=== PATIENT | female | born 1965 | race Caucasian/White ===

== ENCOUNTER 2017-08-04 12:13 | Emergency (ER) | payer OTHER ==
[~2017-08-04] VITALS: Ht 165.1 cm; Wt 69.9 kg
[~2017-08-04 12:13] MED LIST: HYDROCHLOROTHIA25 M1 PO; LOVASTATIN20 M1 PO; MONTELUKAST SOD10 M1 PO; VERAPAMIL ER240 MG PO; ZOFRAN4 M2 SL; ZONISAMIDE100 M1 PO
--- NOTE | 2017-08-04 13:43 | CT SCAN REPORT ---
EXAMINATION: CT HEAD WITHOUT CONTRAST CLINICAL INFORMATION: Headache. Blurry vision. COMPARISON: No relevant prior imaging. TECHNIQUE: Contiguous axial imaging was performed from the skull base to vertex without intravenous administration of contrast. DLP: 616.61 mGy-cm FINDINGS: There is no acute intracranial hemorrhage or abnormal extra-axial collection. No intracranial mass effect or midline shift. Lateral and third ventricles are normal. No hydrocephalus. Vasquez-white matter differentiation is grossly preserved and there is no evidence of acute territorial infarct. The calvarium and skull base are intact. Mastoid air cells and middle ear cavities are well-aerated. Visualized paranasal sinuses are well aerated. IMPRESSION: Normal CT scan of the head.
--- NOTE | 2017-08-04 14:57 | ED GENERAL PEDIATRIC ---
History of Present Illness General Chief Complaint: General Adult Stated Complaint: BLURRY VISION, JOINT PAIN Source: patient Exam Limitations: no limitations Vital Signs & Intake/Output Vital Signs & Intake/Output Vital Signs Date Time Temp Pulse Resp B/P B/P Pulse O2 O2 Flow FiO2 Mean Ox Delivery Rate 08/04 1508 98.4 78 18 138/79 95 Room Air Room Air 08/04 1235 98.1 77 18 132/91 99 Room Air Allergies Coded Allergies: Sulfa (Sulfonamide Antibiotics) (Intermediate, SWELLING/HIVES 07/03/15) Reconcile Medications Aspirin (Aspirin*) 81 MG TAB.CHEW 1 TAB PO DAILY HEART HEALTH (Reported) Calcium (Elemental-Fr Calcarb) (Calcium) 600 MG CALCIUM (1,500 MG) TABLET 1 TAB PO DAILY SUPPLEMENT (Reported) Hydrochlorothiazide 25 MG TABLET 1 TAB PO EOD WATER PILL (Reported) Lovastatin 20 MG TABLET 1 TAB PO DAILY CHOLESTEROL (Reported) Metoprolol Succ XL (Toprol Xl) 50 MG TAB 1 TAB PO DAILY HEART (Reported) Montelukast Sodium (Singulair) 10 MG TABLET 1 TAB PO DAILY ALLERGIES ( Reported) Zonisamide 100 MG CAPSULE 2 CAP PO DAILY UNKNOWN (Reported) Triage Note: 51F WITH HEADACHE SINCE YESTERDAY, AND ONE HOUR OF VISION BLURRING. HX OF MIGRAINES BUT SAYS THIS DOES NOT FEEL LIKE ONE. SEVERE JOINT ACHES BEGAN IN MARCH AND HAS BEEN WORKING UP FOR IT BY PMD FOR AUTOIMMUNE DISEASE. ESR, SHERRY, LYME TITRE'S DRAWN JULY 05 AND NO OBVIOUS CONCERNS IN RESULTS AT THIS TIME. -N/V/D. REPORTS INCREASED RESTING SOB, UNABLE TO TAKE DEEP INSPIRATION. + ANKLE SWELLING. DENIES CP/PALPITATIONS. DENIES RECENT INSECT BITES OR RASHES. MOTOR COORDINATION INTACT Onset: Abrupt Duration: hour(s): Timing: recent history HPI: Past History Travel History Traveled to [place] past 21 day No Medical History Neurological: migraine EENT: NONE Cardiovascular: hypertension, hyperlipidemia Respiratory: NONE Gastrointestinal: ibs Hepatic: NONE Renal: NONE Musculoskeletal: NONE Psychiatric: NONE Endocrine: NONE Blood Disorders: NONE Cancer(s): NONE FINANCE INTERN/Reproductive: NONE Psychosocial History Child's primary language? Welsh ETOH Use: occasional use Illicit Drug Use: denies illicit drug use Departure Departure Condition: Stable Referrals: Diaz Patrick SINGER (PCP/Family) Departure Forms: Customer Survey General Discharge Information Referrals: Diaz Patrick SINGER (PCP/Family) Departure Forms: Customer Survey General Discharge Information
[2017-08-04 15:08] VITALS: BP 138/79
[2017-08-04] MEDS ORDERED: TOPROL XL50 M1 PO (15:42)
[2017-08-04] MEDS ORDERED: SINGULAIR10 M1 PO (15:43)
[2017-08-04] MEDS ORDERED: CALCIUM600 M3 PO (15:44)
[2017-08-04] MEDS ORDERED: ASPIRIN81 M4 PO (15:45)
--- NOTE | 2017-08-04 16:31 | ED GENERAL ADULT ---
History of Present Illness General Chief Complaint: General Adult Stated Complaint: BLURRY VISION, JOINT PAIN Source: patient, family Exam Limitations: no limitations Vital Signs & Intake/Output Vital Signs & Intake/Output Vital Signs Date Time Temp Pulse Resp B/P B/P Pulse O2 O2 Flow FiO2 Mean Ox Delivery Rate 08/04 1508 98.4 78 18 138/79 95 Room Air Room Air 08/04 1235 98.1 77 18 132/91 99 Room Air Allergies Coded Allergies: Sulfa (Sulfonamide Antibiotics) (Intermediate, SWELLING/HIVES 07/03/15) Reconcile Medications Aspirin (Aspirin*) 81 MG TAB.CHEW 1 TAB PO DAILY HEART HEALTH (Reported) Calcium (Elemental-Fr Calcarb) (Calcium) 600 MG CALCIUM (1,500 MG) TABLET 1 TAB PO DAILY SUPPLEMENT (Reported) Hydrochlorothiazide 25 MG TABLET 1 TAB PO EOD WATER PILL (Reported) Lovastatin 20 MG TABLET 1 TAB PO DAILY CHOLESTEROL (Reported) Metoprolol Succ XL (Toprol Xl) 50 MG TAB 1 TAB PO DAILY HEART (Reported) Montelukast Sodium (Singulair) 10 MG TABLET 1 TAB PO DAILY ALLERGIES ( Reported) Zonisamide 100 MG CAPSULE 2 CAP PO DAILY UNKNOWN (Reported) Triage Note: 51F WITH HEADACHE SINCE YESTERDAY, AND ONE HOUR OF VISION BLURRING. HX OF MIGRAINES BUT SAYS THIS DOES NOT FEEL LIKE ONE. SEVERE JOINT ACHES BEGAN IN MARCH AND HAS BEEN WORKING UP FOR IT BY PMD FOR AUTOIMMUNE DISEASE. ESR, SHERRY, LYME TITRE'S DRAWN JULY 05 AND NO OBVIOUS CONCERNS IN RESULTS AT THIS TIME. -N/V/D. REPORTS INCREASED RESTING SOB, UNABLE TO TAKE DEEP INSPIRATION. + ANKLE SWELLING. DENIES CP/PALPITATIONS. DENIES RECENT INSECT BITES OR RASHES. MOTOR COORDINATION INTACT Triage Nurses Notes Reviewed? yes Onset: Abrupt Duration: hour(s): Timing: recent history HPI: 51-year-old female presents to the emergency department with bilateral blurry vision. She said approximately 2 hours prior to arrival she developed a sudden onset of bilateral grit in the eyes that felt dry and her vision became blurry.. She did not get anything in her eyes. Pt stated her vision seemed as if her glasses were covered with fog, but they were not. She says she has a history of severe peripheral vascular disease. CT scan of the head was negative. Her eye exam externally was normal. The fundi were normal. I spoke with Dr. Marrufo who will be evaluating her in his office now. Past History Travel History Traveled to [place] past 21 day No Medical History Any Pertinent Medical History? see below for history Neurological: migraine EENT: NONE Cardiovascular: hypertension, hyperlipidemia Respiratory: NONE Gastrointestinal: ibs Hepatic: NONE Renal: NONE Musculoskeletal: NONE Psychiatric: NONE Endocrine: NONE Blood Disorders: NONE Cancer(s): NONE SENIOR ACCOUNTANT ANALYST/Reproductive: NONE Surgical History Surgical History: appendectomy, cholecystectomy, hysterectomy Psychosocial History What is your primary language Yakut Tobacco Use: Never used ETOH Use: occasional use Illicit Drug Use: denies illicit drug use Family History Hx Contributory? No Review of Systems Review of Systems Constitutional: Denies: fever. EENTM: Reports: blurred vision, visual changes. Respiratory: Denies: short of breath. Cardiovascular: Denies: chest pain. GI: Denies: abdominal pain. Genitourinary: Reports: no symptoms. Musculoskeletal: Reports: no symptoms. Skin: Denies: rash. Neurological/Psychological: Reports: see HPI. Hematologic/Endocrine: Denies: bruising, bleeding. Physical Exam Physical Exam General Appearance: well developed/nourished, alert, awake, anxious, mild distress Head: atraumatic, normal appearance, active bleeding Eyes: Bilateral: normal appearance, PERRL, EOMI. Ears, Nose, Throat: normal pharynx, normal ENT inspection Neck: normal inspection, supple, full range of motion Respiratory: normal breath sounds, chest non-tender, no respiratory distress Cardiovascular: regular rate/rhythm Peripheral Pulses: 4+ radial (R), 4+ radial (L) Gastrointestinal: soft, non-tender Back: normal range of motion Extremities: normal inspection Neurologic/Psych: no motor/sensory deficits, awake, alert, oriented x 3 Skin: intact, normal color, warm/dry Core Measures ACS in differential dx? No CVA/TIA Diagnosis: No Sepsis Present: No Sepsis Focused Exam Completed? No Progress Differential Diagnoses I considered the following diagnoses in my evaluation of the patient: [Glaucoma, retinal detachment, TIA, central retinal artery occlusion, adverse drug reaction , conjunctivitis] Plan of Care: Follow-up with Dr. Marrufo. Initial ED EKG: NSR Departure Departure Disposition: HOME OR SELF CARE Condition: Stable Clinical Impression Primary Impression: Blurry vision Referrals: Patrick Diaz MD (PCP/Family) Additional Instructions: FOLLOW-UP WITH DR. MARRUFO'S OFFICE NOW Departure Forms: Customer Survey General Discharge Information Comments The patient's corrected vision on the Snellen eye chart was 20/70. Her eyes and neurological exam were otherwise normal. I spoke with Dr. Marrufo will evaluate the patient in his office. Critical Care Note Critical Care Note Critical Care Time: non-applicable
== END 2017-08-04 15:59 ==
LOC: ERH 12:13
DX: H53.8 Other visual disturbances (principal)